=== PATIENT | female | born 1980 | race Caucasian/White ===

== ENCOUNTER 2018-03-20 13:51 | Emergency (ER) | payer OTHER ==
[~2018-03-20] VITALS: Ht 157.5 cm; Wt 79.4 kg
[2018-03-20 13:55] VITALS: BP 132/87
--- NOTE | 2018-03-20 14:01 | NUR ---
37 YO F PT BIB FAMILY W/ C/O BACK PAIN 04/25 RADIATING DOWN TO RT LEG SINCE YESTERDAY. DENIES INJURY, STATES ITS HAPPENED IN THE PAST RANDOMLY. AGGREVAED BY BENDING OVER. DENIES N/V/FEVER/CHILLS. NO NOTED INJURY. AAOX4.GSC 15. CMS INTACT. RR EVEN AND UNLABORED. LUNGS BILATERALLY CLEAR. ABD SOFT, NON-TENDER. ER MD LAM NOTIFIED. PT NEEDS MET. SAFETY PRECAUTIONS IN PLACE. WILL CONTINUE TO MONITOR.
--- NOTE | 2018-03-20 14:07 | NUR ---
PT REPORTS THAT SHE IS UNABLE TO URINATE AT THIS TIME. PT GIVEN 2X CUPS OF WATER. WILL RE-EVALUATE. WILL CONTINUE TO MONITOR.
[2018-03-20] MEDS ORDERED: LORazepam 2 MG/ML VIAL IM ONE (14:20)
[2018-03-20] MEDS ORDERED: MORPHINE SULFATE 2 MG/ML SYR IM ONE (14:20)
--- NOTE | 2018-03-20 14:20 | NUR ---
pt ambulates w/ steady gait to restroom at this time.
[2018-03-20 15:01] LABS: BARBITURATE, URINE NEG. ng/ml (NEG <=200); BENZODIAZEPINE, URINE NEG. ng/mL (NEG <=200); CANNABINOID, URINE NEG. ng/mL (NEG <=50); COCAINE, URINE NEG. ng/mL (NEG <=300); OPIATE, URINE NEG. ng/mL (NEG <=2000); PHENCYCLIDINE SCREEN,URINE NEG. ng/mL (NEG <=25)
[2018-03-20 15:27] VITALS: BP 122/79
--- NOTE | 2018-03-20 15:28 | NUR ---
Patient discharged with v/s stable. Written and verbal after care instructions given and explained. Patient alert, oriented and verbalized understanding of instructions. Ambulatory with steady gait. All questions addressed prior to discharge. ID band removed. Patient advised to follow up with PMD. Rx of Fioricet given. Patient educated on indication of medication including possible reaction and side effects. Opportunity to ask questions provided and answered.
== END 2018-03-20 15:28 | disposition home or self-care (01) ==
LOC: MED 13:51
DX: S33.5XXA Sprain of ligaments of lumbar spine, initial encounter (principal); M54.40 Lumbago with sciatica, unspecified side; Z88.8 Allergy status to other drugs, medicaments and biological substances; X58.XXXA Exposure to other specified factors, initial encounter; Y93.89 Activity, other specified; Y92.89 Other specified places as the place of occurrence of the external cause; Y99.8 Other external cause status
CPT/HCPCS: 80305; 81002; 81025; 96372; 99284; J2060; J2270